=== PATIENT | male | born 1965 | race Two or more races ===

== ENCOUNTER → 2016-11-28 | Outpatient (CLI) | payer OTHER | LOC: OD 11:19 | PROVIDERS: ATTEND Preventive Medicine Undersea and Hyperbaric Medicine | DX: L97.522 Non-pressure chronic ulcer of other part of left foot with fat layer exposed (principal) ==

== ENCOUNTER 2019-12-15 14:10 | Emergency (ER) | payer OTHER ==
[2019-12-15] MEDS ORDERED: KETOROLAC TROMETHAMINE 60 MG/2 ML SDV IM ONE (14:54)
--- NOTE | 2019-12-15 14:55 | ER Document Report ---
ED Medical Screen (RME) - General Chief Complaint: Knee Pain Stated Complaint: KNEE SWELLING Time Seen by Provider: 12/15/19 14:53 Primary Care Provider: CIELO JIMENEZ DPM [Primary Care Provider] - Follow up as needed Notes: 53-year-old male presents with right knee pain/swelling. Patient states that is been ongoing for months however is gotten worse the last 3 weeks. Patient denies any specific injury. Patient states most of the pain is medial. Patient states he saw an Ortho doctor in [place] in August who told him that it "was not too bad." Patient states he has tried to see another doctor but has been limited due to being [facility]. Tenderness noted to medial aspect. Flexion limited due to pain. No erythema. Areas not hot to touch. I have greeted and performed a rapid initial assessment of this patient. A comprehensive ED assessment and evaluation of the patient, analysis of test results and completion of the medical decision making process with be conducted by additional ED providers. TRAVEL OUTSIDE OF THE [place] IN LAST 30 DAYS: No - Related Data Allergies/Adverse Reactions: No Known Allergies Allergy (Verified 09/21/16 08:05) Past Medical History - Past Medical History Cardiac Medical History: Reports: Hx Hypercholesterolemia, Hx Hypertension Endocrine Medical History: Reports: Hx Diabetes Mellitus Type 2 Past Surgical History: Reports: Hx Orthopedic Surgery - left great toe, low back surgery, Other - Cataract surgery - Immunizations Hx Diphtheria, Pertussis, Tetanus Vaccination: No Physical Exam - Vital signs Vitals: Temp Pulse Resp BP Pulse Ox 98.4 F 108 H 16 185/110 H 98 12/15/19 14:45 12/15/19 14:45 12/15/19 14:45 12/15/19 14:45 12/15/19 14:45 Course - Vital Signs Vital signs: Temp Pulse Resp BP Pulse Ox 98.4 F 108 H 16 185/110 H 98 12/15/19 14:45 12/15/19 14:45 12/15/19 14:45 12/15/19 14:45 12/15/19 14:45 Doctor's Discharge - Discharge Referrals: CIELO JIMENEZ DPM [Primary Care Provider] - Follow up as needed
--- NOTE | 2019-12-15 16:23 | RADIOLOGY REPORT (SQ) ---
EXAM DESCRIPTION: KNEE RIGHT 4 VIEWS COMPLETED DATE/TIME: 12/15/2019 3:55 pm REASON FOR STUDY: right knee pain x months, worse 3 weeks COMPARISON: None. NUMBER OF VIEWS: Four views. TECHNIQUE: AP, lateral, and both oblique radiographic images acquired of the right knee. LIMITATIONS: None. FINDINGS: MINERALIZATION: Normal. BONES: No acute fracture or dislocation. JOINT: [id number] tricompartmental osteoarthrosis. There is no joint effusion. SOFT TISSUES: Mild prepatellar soft tissue swelling. The quadriceps and patellar tendon silhouettes are intact. OTHER: Enthesophytes at the patellar insertion of the quadriceps tendon and vascular calcifications. IMPRESSION: No acute osseous abnormality of the right knee. TECHNICAL DOCUMENTATION: JOB ID: [id number] 2010 [employer]- All Rights Reserved Reading location - IP/workstation name: [email or web address]
--- NOTE | 2019-12-15 17:08 | ER Document Report ---
ED General - General Chief Complaint: Knee Pain Stated Complaint: KNEE SWELLING Time Seen by Provider: 12/15/19 14:53 Primary Care Provider: [facility] [Provider Group] - Follow up in 1 week FERN MEJIA DO [ACTIVE STAFF] - Follow up in 3-5 days Notes: 53-year-old male presents with right knee pain that is been ongoing for months, worse the last 3 weeks. Patient states he has seen Ortho in August in [place] who was told him that "it was not that bad." Patient denies any injuries, fever, chest pain, shortness of breath. TRAVEL OUTSIDE OF THE [place] IN LAST 30 DAYS: No - Related Data Allergies/Adverse Reactions: No Known Allergies Allergy (Verified 09/21/16 08:05) Past Medical History - Social History Smoking Status: Unknown if Ever Smoked Family History: CAD - Past Medical History Cardiac Medical History: Reports: Hx Hypercholesterolemia, Hx Hypertension Endocrine Medical History: Reports: Hx Diabetes Mellitus Type 2 Past Surgical History: Reports: Hx Orthopedic Surgery - left great toe, low back surgery, Other - Cataract surgery - Immunizations Hx Diphtheria, Pertussis, Tetanus Vaccination: No Review of Systems - Review of Systems Notes: Constitutional: Negative for fever. HENT: Negative for sore throat. Eyes: Negative for visual changes. Cardiovascular: Negative for chest pain. Respiratory: Negative for shortness of breath. Gastrointestinal: Negative for abdominal pain, vomiting or diarrhea. Genitourinary: Negative for dysuria. Musculoskeletal: Positive for right knee pain. Negative for back pain. Skin: Negative for rash. Neurological: Negative for headaches, weakness or numbness. 10 point ROS negative except as marked above and in HPI. Physical Exam - Vital signs Vitals: Temp Pulse Resp BP Pulse Ox 98.4 F 108 H 16 185/110 H 98 12/15/19 14:45 12/15/19 14:45 12/15/19 14:45 12/15/19 14:45 12/15/19 14:45 - Notes Notes: GENERAL: Well-appearing, well-nourished and in no acute distress. HEAD: Atraumatic, normocephalic. EYES:Extraocular movements intact, sclera anicteric, conjunctiva are normal. NECK: Normal range of motion, supple without lymphadenopathy or JVD. EXTREMITIES: Able to ambulate with cane. Tenderness to right knee on medial aspect, no erythema, mild swelling, not hotter to touch than surrounding skin, limited flexion due to pain, full extension NEUROLOGICAL: Cranial nerves II through XII grossly intact. Normal speech, normal gait. PSYCH: Normal mood, normal affect. SKIN: Warm, Dry, normal turgor, no rashes or lesions noted. Course - Re-evaluation Re-evalutation: 12/15/19 nontoxic, well-appearing 53-year-old male presents with right knee pain that is ongoing for months, worse last 3 weeks. Flexion limited due to pain. Mildly swollen. Tenderness to medial aspect. No signs of cellulitis. PE is otherwise unremarkable. X-ray shows degenerative changes. Patient given prescription for naproxen and referral to Ortho. Return precautions given. Patient voices understanding and agrees with plan of care. - Vital Signs Vital signs: Temp Pulse Resp BP Pulse Ox 97.9 F 107 H 16 148/105 H 98 12/15/19 17:33 12/15/19 17:33 12/15/19 17:33 12/15/19 17:33 12/15/19 17:33 Procedures - Immobilization Right Knee Pre-Proc Neuro Vasc Exam: Normal Immobilizer type: Pj wrap Performed by: PCT Post-Proc Neuro Vasc Exam: Normal, Unchanged from pre-exam Alignment checked and good: Yes Discharge - Discharge Clinical Impression: Osteoarthritis of right knee Qualifiers: Osteoarthritis type: unspecified Qualified Code(s): M17.11 - Unilateral primary osteoarthritis, right knee Right knee pain Qualifiers: Chronicity: unspecified Qualified Code(s): M25.561 - Pain in right knee Condition: Stable Disposition: HOME, SELF-CARE Instructions: Arthritis ([facility]), Ice & Elevation ([facility]) Additional Instructions: Please use naproxen as prescribed. Please follow-up with Ortho doctor listed in 3 to 5 days. Your x-ray shows arthritis to your knee. Please follow-up with your primary care doctor in 1 week. Return immediately to ER if you start having any worsening symptoms, including redness to area, increased swelling, area feeling hotter to touch than surrounding skin, fever, or any other symptoms that are concerning to you. Prescriptions: Naproxen 500 mg PO BID PRN #14 tablet PRN Reason: Referrals: FERN MEJIA DO [ACTIVE STAFF] - Follow up in 3-5 days [facility] [Provider Group] - Follow up in 1 week
[2019-12-15 17:34] VITALS: BP 148/105
== END 2019-12-15 17:37 | disposition home or self-care (01) ==
LOC: ER 14:10
DX: M25.561 Pain in right knee (principal); M17.11 Unilateral primary osteoarthritis, right knee; I10 Essential (primary) hypertension; E11.9 Type 2 diabetes mellitus without complications
CPT/HCPCS: 73564; J1885; 96372; 99283

== ENCOUNTER 2020-04-29 09:20 | Emergency (ER) | payer OTHER ==
--- NOTE | 2020-04-29 10:33 | ER Document Report ---
ED Medical Screen (RME) - General Chief Complaint: High Blood Pressure Stated Complaint: HIGH BLOOD PRESSURE Time Seen by Provider: 04/29/20 10:29 Primary Care Provider: CIELO JIMENEZ DPM [Primary Care Provider] - Follow up as needed Information source: Patient Notes: This 54-year-old male with a history of diabetes high cholesterol and hypertension who has not taken any of his medicines in several weeks. He is quite hypertensive at 230/130 he has knee pain that is been popping out and has not checked his sugar recently either. TRAVEL OUTSIDE OF THE [place] IN LAST 30 DAYS: No - Related Data Allergies/Adverse Reactions: No Known Allergies Allergy (Verified 04/29/20 10:29) Past Medical History - Past Medical History Cardiac Medical History: Reports: Hx Hypercholesterolemia, Hx Hypertension Endocrine Medical History: Reports: Hx Diabetes Mellitus Type 2 Past Surgical History: Reports: Hx Orthopedic Surgery - left great toe, low back surgery, Other - Cataract surgery - Immunizations Hx Diphtheria, Pertussis, Tetanus Vaccination: No Physical Exam - Vital signs Vitals: Temp Pulse Resp BP Pulse Ox 99 F 110 H 18 220/130 H 96 04/29/20 09:24 04/29/20 09:24 04/29/20 09:24 04/29/20 09:24 04/29/20 09:24 Course - Vital Signs Vital signs: Temp Pulse Resp BP Pulse Ox 99 F 110 H 18 220/130 H 96 04/29/20 09:24 04/29/20 09:24 04/29/20 09:24 04/29/20 09:24 04/29/20 09:24 Doctor's Discharge - Discharge Referrals: CIELO JIMENEZ DPM [Primary Care Provider] - Follow up as needed
[2020-04-29] MEDS ORDERED: CLONIDINE HCL 0.2 MG TABLET PO ONE (10:34)
[2020-04-29 11:04] LABS: ABSOLUTE BASOPHILS # (AUTO) 0.1 10^3/uL (0.0-0.2); ABSOLUTE EOSINOPHILS # (AUTO) 0.3 10^3/uL (0.0-0.6); ABSOLUTE LYMPHOCYTES (AUTO) 0.8 10^3/uL (0.5-4.7); ABSOLUTE MONOCYTES (AUTO) 0.8 10^3/uL (0.1-1.4); ABSOLUTE NEUT (AUTO) 5.6 10^3/uL (1.7-8.2); BASOPHILS % (AUTO) 0.9 % (0-2); EOSINOPHILS % (AUTO) 4.5 % (0-6); HEMATOCRIT 41.7 % (37.9-51.0); HEMOGLOBIN 13.7 g/dL (13.5-17.0); LYMPHOCYTES % (AUTO) 10.1 % (13-45); MEAN CORPUSCULAR HEMOGLOBIN 27.9 pg (27.0-33.4); MEAN CORPUSCULAR VOLUME 85 fl (80-97); PLATELET COUNT 361 10^3/uL (150-450); RED BLOOD COUNT 4.93 10^6/uL (4.35-5.55); RED CELL DISTRIBUTION WIDTH 13.3 % (11.5-14.0); SEGMENTED NEUTROPHILS % (AUTO) 74.5 % (42-78); TOTAL CELLS COUNTED % (AUTO) 100 %; WHITE BLOOD COUNT 7.5 10^3/uL (4.0-10.5)
[2020-04-29 11:23] LABS: ALBUMIN 2.9 g/dL (3.5-5.0); ALKALINE PHOSPHATASE 79 U/L (38-126); ASPARTATE AMINO TRANSFERASE 28 U/L (17-59); BILIRUBIN,TOTAL 0.4 mg/dL (0.2-1.3); BLOOD UREA NITROGEN 23 mg/dL (7-20); CALCIUM 8.5 mg/dL (8.4-10.2); CARBON DIOXIDE 29 mmol/L (22-30); CHLORIDE 104 mmol/L (98-107); GLUCOSE 199 mg/dL (75-110); POTASSIUM 4.4 mmol/L (3.6-5.0); TOTAL PROTEIN 6.4 g/dL (6.3-8.2)
[2020-04-29 11:32] LABS: ANION GAP 3 (5-19)
--- NOTE | 2020-04-29 11:35 | RADIOLOGY REPORT (SQ) ---
EXAM DESCRIPTION: KNEE RIGHT 2 VIEWS IMAGES COMPLETED DATE/TIME: 04/29/2020 10:23 am REASON FOR STUDY: pain COMPARISON: None. NUMBER OF VIEWS: Two views TECHNIQUE: AP and lateral radiographic images acquired of the right knee. LIMITATIONS: None. FINDINGS: MINERALIZATION: Normal. BONES: No acute fracture or dislocation. No worrisome bone lesions. Moderate size osteophytes at th e medial and lateral compartments. Small osteophytes at the patellofemoral joint. Bony spurring of the tibial spines. JOINT: No joint effusion. No intra-articular loose body. SOFT TISSUES: No soft tissue swelling. No radio-opaque foreign body. OTHER: No other significant finding. IMPRESSION: Moderate tricompartmental osteoarthritis. No acute fracture or dislocation. TECHNICAL DOCUMENTATION: JOB ID: [id number] [employer]- All Rights Reserved Reading location - IP/workstation name: [email or web address]
[2020-04-29] MEDS ORDERED: HYDRALAZINE HCL INJ/PF 20 MG/1 ML SDV IV ONE (12:38)
--- NOTE | 2020-04-29 12:47 | ER Document Report ---
Entered by ELIAS IZQUIERDO SCRIBE 04/29/20 1239 Acting as scribe for:KATIE DU MD ED General - General Chief Complaint: High Blood Pressure Stated Complaint: HIGH BLOOD PRESSURE Time Seen by Provider: 04/29/20 10:29 Primary Care Provider: SUZETTE FERNÁNDEZ PA [NO LOCAL MD] - Follow up in 3-5 days Mode of Arrival: Ambulatory Information source: Patient Notes: This 54-year-old male patient presents to the emergency department today from h is PCPs office today for hypertensive emergency. Patient had pressures of 220/120 today at his primary care physician's office. Patient was there to get refills on his blood pressure medicine today, stating that he has been out of his meds for x3-4 days. Patient also complains about his chronic right knee pain. TRAVEL OUTSIDE OF THE [place] IN LAST 30 DAYS: No - Related Data Allergies/Adverse Reactions: No Known Allergies Allergy (Verified 04/29/20 10:29) Past Medical History - General Information source: Patient - Social History Smoking Status: Current Every Day Smoker Cigarette use (# per day): Yes Frequency of alcohol use: Social Drug Abuse: None Occupation: Works as a electro mechanical assembler Family History: CAD Patient has homicidal ideation: No - Past Medical History Cardiac Medical History: Reports: Hx Hypercholesterolemia, Hx Hypertension Endocrine Medical History: Reports: Hx Diabetes Mellitus Type 2 Past Surgical History: Reports: Hx Orthopedic Surgery - left 3rd toe, low back surgery, Other - Cataract surgery - Immunizations Hx Diphtheria, Pertussis, Tetanus Vaccination: No Review of Systems - Review of Systems Constitutional: No symptoms reported EENT: No symptoms reported Cardiovascular: See HPI, Other - Hypertension Respiratory: No symptoms reported Gastrointestinal: No symptoms reported Genitourinary: No symptoms reported Male Genitourinary: No symptoms reported Musculoskeletal: See HPI, Joint pain - Right knee, chronic Skin: No symptoms reported Hematologic/Lymphatic: No symptoms reported Neurological/Psychological: No symptoms reported -: Yes All other systems reviewed and negative Physical Exam - Vital signs Vitals: Temp Pulse Resp BP Pulse Ox 99 F 110 H 18 220/130 H 96 04/29/20 09:24 04/29/20 09:24 04/29/20 09:24 04/29/20 09:24 04/29/20 09:24 - Notes Notes: Physical Exam: General: Alert. HEENT: Normocephalic. Atraumatic. PERRL. Extraocular movements intact. Oropharynx clear. Neck: Supple. Non-tender. Respiratory: No respiratory distress. Clear and equal breath sounds bilaterally. Cardiovascular: Regular rate and rhythm. Abdominal: Normal Inspection. Non-tender. No distension. Normal Bowel Sounds. Back: No gross abnormalities. Extremities: Moves all four extremities. Upper extremities: Normal inspection. Normal ROM. Lower extremities: 1-2+ firm pitting edema bilaterally. Chronic thickened skin on lower extremities. Right knee is large, swollen, and tender to palpation consistent with osteoarthritic changes. Neurological: Normal cognition. AAOx4. Normal speech. Psychological: Normal affect. Normal Mood. Skin: Warm. Dry. Normal color. Course - Re-evaluation Re-evalutation: 04/29/20 14:05 Patient blood pressure is now down to 158/101 with a pulse of 88. He will be given an additional dose of Lopressor 5 mg IV, and an oral dose of 50 mg. The patient's total CK was 952. This may be due to his statin therapy, but will require follow-up by his primary care provider. In the meantime he will be encouraged to drink plenty of water but to avoid salt or sodium. His primary care provider ROBIN Dubois did call me back and states that according to his records the patient should not have run of his medication, however he will contact the pharmacy to ensure that he has refills of all his medications waiting for him when he is discharged today so that he does not run out of his medications. 04/29/20 14:27 At discharge, the patient states that he needs a note for work. His right knee is swollen and painful all the time but he is had no problems continuing to work as a electro mechanical assembler he does not have to go up and down steps or ladders. He stated his boss just wanted a note saying that it was okay for him to continue working. - Vital Signs Vital signs: Temp Pulse Resp BP Pulse Ox 99 F 110 H 22 H 158/101 H 92 04/29/20 10:29 04/29/20 09:24 04/29/20 13:01 04/29/20 14:01 04/29/20 14:01 - Laboratory Result Diagrams: 04/29/20 10:44 04/29/20 10:44 Laboratory results interpreted by me: 04/29/20 04/29/20 04/29/20 10:44 10:44 10:44 Lymph % (Auto) 10.1 L Sodium 136.4 L Anion Gap 3 L BUN 23 H Creatinine 1.29 H Est GFR (MDRD) Non-Af 58 L Glucose 199 H Hemoglobin A1c % Creatine Kinase 952 H Albumin 2.9 L Urine Protein Urine Glucose (UA) Urine Ketones Urine Blood 04/29/20 04/29/20 10:44 13:38 Lymph % (Auto) Sodium Anion Gap BUN Creatinine Est GFR (MDRD) Non-Af Glucose Hemoglobin A1c % 10.6 H Creatine Kinase Albumin Urine Protein >=500 H Urine Glucose (UA) >=500 H Urine Ketones TRACE H Urine Blood SMALL H - Diagnostic Test Radiology reviewed: Image reviewed, Reports reviewed - Right knee x-ray shows tricompartmental osteoarthritis - EKG Interpretation by Me EKG shows normal: Sinus rhythm, Spring, QRS Complexes. abnormal: Intervals - Borderline prolonged QT interval, ST-T Waves - Nonspecific lateral T abnormalities, ST elevation consistent with normal early repolarization pattern Rate: Normal - 89 Spring/QRS: Right axis deviation Heart block present: 1st Degree When compared to previous EKG there are: No significant change Discharge - Discharge Clinical Impression: Has run out of medications, Poor compliance with medication, Poorly controlled diabetes mellitus Hypertension Qualifiers: Hypertension type: essential hypertension Qualified Code(s): I10 - Essential (primary) hypertension Diabetes Qualifiers: Diabetes mellitus type: type 2 Diabetes mellitus terminologist insulin use: with terminologist use Diabetes mellitus complication status: with hyperglycemia Qualified Code(s): E11.65 - Type 2 diabetes mellitus with hyperglycemia Osteoarthritis of right knee Qualifiers: Osteoarthritis type: unspecified Qualified Code(s): M17.11 - Unilateral primary osteoarthritis, right knee Rhabdomyolysis Qualifiers: Rhabdomyolysis type: non-traumatic Qualified Code(s): M62.82 - Rhabdomyolysis Condition: Stable Disposition: HOME, SELF-CARE Additional Instructions: Knee Arthritis: Your symptoms are due to arthritis. Arthritis is an inflammation of the joints. There are many types -- osteoarthritis (due to "wear and tear"), auto- immmune arthritis (such as rheumatoid, lupus, Jaxon's, and others), and crystal-induced arthritis (such as gout and pseudogout). The physician's examination, combined with laboratory tests, will determine the cause of your arthritis. Your arthritis is osteoarthritis. All types of arthritis are treated with antiinflammatory medications. Other medication may be required for special types of arthritis, or if your problem does not respond to the antiinflammatory medicine. Local warmth may be helpful. Move the involved joints through the full range of motion daily. Mild exercise is usually still possible for most persons with arthritis (ask your physician). Swimming provides good exercise without d amaging the joints. Contact the physician if you are worsening in any way. High Blood Pressure: When your blood pressure was taken today it was elevated. Today's reading was 220/130. It is very important that you do not allow yourself to run out of medication. You are at very high risk for heart attack and stroke due to your poorly controlled high blood pressure and poorly controlled diabetes. Rhabdomyolysis: This means of breakdown of muscles causing release of a muscle enzyme called creatinine kinase. This may be due to the atorvastatin you are taking. You should drink plenty of water over the next few days to help wash this enzyme out of your system. Be sure to avoid sodium in your diet and your fluid you are drinking so that you do not retain the water you are drinking. Go to your pharmacy and get your medications refilled so that you do not run out of your diabetes and blood pressure medicines. Limit walking on your right knee, and take extra strength Tylenol for pain as needed. Follow-up with your primary care provider in the next few days for recheck of your knee and to be sure your blood pressure and blood sugars are being controlled. Take copies of the lab work and your EKG when you follow-up with your doctor in the next few days. RETURN TO THE EMERGENCY ROOM IF ANY NEW OR WORSENING SYMPTOMS. Forms: Return to Work Referrals: CAMP,SUZETTE M, PA [NO LOCAL MD] - Follow up in 3-5 days I personally performed the services described in the documentation, reviewed and edited the documentation which was dictated to the scribe in my presence, and it accurately records my words and actions.
[2020-04-29] MEDS ORDERED: METOPROLOL TARTRATE PF/INJ 5 MG/5 ML SDV IV ONE ×2 (13:23→14:05)
[2020-04-29 13:57] LABS: APPEARANCE,URINE CLEAR; BILIRUBIN,URINE NEGATIVE (NEGATIVE); COLOR,URINE STRAW; GLUCOSE, URINE >=500 mg/dL (NEGATIVE); KETONES,URINE TRACE mg/dL (NEGATIVE); LEUKOCYTE ESTERASE,URINE NEGATIVE (NEGATIVE); NITRITE,URINE NEGATIVE (NEGATIVE); PROTEIN,URINE >=500 mg/dL (NEGATIVE); URINE SPECIFIC GRAVITY 1.015; UROBILINOGEN,URINE NEGATIVE mg/dL (<2.0)
[2020-04-29] MEDS ORDERED: METOPROLOL TARTRATE 50 MG TABLET PO ONE (14:05)
[2020-04-29 14:43] VITALS: BP 165/104
--- NOTE | 2020-04-30 19:29 | EKG REPORT ---
SEVERITY:- ABNORMAL ECG - SINUS RHYTHM FIRST DEGREE AV BLOCK RIGHT AXIS DEVIATION NONSPECIFIC T ABNORMALITIES, LATERAL LEADS ST ELEV, PROBABLE NORMAL EARLY REPOL PATTERN BORDERLINE PROLONGED QT INTERVAL : Confirmed by: Bossman Armenta 30-Apr-2020 19:28:34
== END 2020-04-29 15:03 | disposition home or self-care (01) ==
LOC: ER 09:20
DX: I16.1 Hypertensive emergency (principal); I10 Essential (primary) hypertension; E11.65 Type 2 diabetes mellitus with hyperglycemia; M62.82 Rhabdomyolysis; M17.11 Unilateral primary osteoarthritis, right knee; R60.0 Localized edema; R23.4 Changes in skin texture; I44.0 Atrioventricular block, first degree; F17.210 Nicotine dependence, cigarettes, uncomplicated; Z79.4 Long term (current) use of insulin
CPT/HCPCS: 93005; 96376; 99284; 96374; 96375; 36415; 82550; 83735; 85025; 80053; 81001; 84484; 83036; 73560; 93010; J0360; J3490

== ENCOUNTER 2020-09-10 10:59 | Inpatient (IN) | payer OTHER ==
[2020-09-10 12:12] LABS: ABSOLUTE BASOPHILS # (AUTO) 0.1 10^3/uL (0.0-0.2); ABSOLUTE EOSINOPHILS # (AUTO) 0.3 10^3/uL (0.0-0.6); ABSOLUTE LYMPHOCYTES (AUTO) 0.8 10^3/uL (0.5-4.7); ABSOLUTE MONOCYTES (AUTO) 0.5 10^3/uL (0.1-1.4); ABSOLUTE NEUT (AUTO) 5.3 10^3/uL (1.7-8.2); BASOPHILS % (AUTO) 1.1 % (0-2); EOSINOPHILS % (AUTO) 3.9 % (0-6); HEMATOCRIT 43.8 % (37.9-51.0); HEMOGLOBIN 14.8 g/dL (13.5-17.0); LYMPHOCYTES % (AUTO) 11.9 % (13-45); MEAN CORPUSCULAR HEMOGLOBIN 28.7 pg (27.0-33.4); MEAN CORPUSCULAR HGB CONC 33.8 g/dL (32.0-36.0); MEAN CORPUSCULAR VOLUME 85 fl (80-97); MONOCYTES % (AUTO) 7.6 % (3-13); PLATELET COUNT 301 10^3/uL (150-450); RED BLOOD COUNT 5.16 10^6/uL (4.35-5.55); RED CELL DISTRIBUTION WIDTH 14.3 % (11.5-14.0); SEGMENTED NEUTROPHILS % (AUTO) 75.5 % (42-78); TOTAL CELLS COUNTED % (AUTO) 100 %; WHITE BLOOD COUNT 7.1 10^3/uL (4.0-10.5)
--- NOTE | 2020-09-10 12:17 | RADIOLOGY REPORT (SQ) ---
EXAM DESCRIPTION: CHEST SINGLE VIEW IMAGES COMPLETED DATE/TIME: 09/10/2020 12:09 pm REASON FOR STUDY: shortness of breath COMPARISON: 10/17/2016 EXAM PARAMETERS: NUMBER OF VIEWS: One view. TECHNIQUE: Single frontal radiographic view of the chest acquired. RADIATION DOSE: NA LIMITATIONS: None. FINDINGS: LUNGS AND PLEURA: Patchy bibasilar infiltrates. Probable small effusions. MEDIASTINUM AND HILAR STRUCTURES: No masses. Contour normal. HEART AND VASCULAR STRUCTURES: Heart normal in size. Normal vasculature. BONES: No acute findings. HARDWARE: None in the chest. OTHER: No other significant finding. IMPRESSION: Patchy bibasilar infiltrates left greater than right. Most likely pneumonia. Less like ly asymmetric edema. TECHNICAL DOCUMENTATION: JOB ID: [id number] 2010 [email or web address]- All Rights Reserved Reading location - IP/workstation name: [email or web address]
[2020-09-10 12:39] LABS: ALKALINE PHOSPHATASE 105 U/L (38-126); ANION GAP 6 (5-19); ASPARTATE AMINO TRANSFERASE 52 U/L (17-59); BILIRUBIN,DIRECT 0.3 mg/dL (0.0-0.4); BILIRUBIN,TOTAL 0.9 mg/dL (0.2-1.3); BLOOD UREA NITROGEN 15 mg/dL (7-20); CALCIUM 8.4 mg/dL (8.4-10.2); CARBON DIOXIDE 30 mmol/L (22-30); CHLORIDE 99 mmol/L (98-107); GLUCOSE 336 mg/dL (75-110); POTASSIUM 4.9 mmol/L (3.6-5.0); TOTAL PROTEIN 6.7 g/dL (6.3-8.2)
[2020-09-10] MEDS ORDERED: FUROSEMIDE INJ/PF 20 MG/2 ML SDV IV ONE (12:46)
[2020-09-10] MEDS ORDERED: NITROGLYCERIN 2% OINTMENT 1 GM PACKET TP ONE (12:46)
[2020-09-10 13:03] LABS: INTERNATIONAL RATION (INR) 0.92; PROTHROMBIN TIME 12.5 SEC (11.4-15.4)
[2020-09-10 13:04] LABS: PARTIAL THROMBOPLASTIN TIME 30.6 SEC (23.5-35.8)
[2020-09-10] MEDS ORDERED: LISINOPRIL 10 MG TABLET PO ONE (13:13)
[2020-09-10] MEDS ORDERED: AMLODIPINE BESYLATE 10 MG TABLET PO ONE (13:14)
[2020-09-10 13:23] LABS: APPEARANCE,URINE CLEAR; BILIRUBIN,URINE NEGATIVE (NEGATIVE); COLOR,URINE YELLOW; GLUCOSE, URINE >=500 mg/dL (NEGATIVE); KETONES,URINE TRACE mg/dL (NEGATIVE); LEUKOCYTE ESTERASE,URINE NEGATIVE (NEGATIVE); NITRITE,URINE NEGATIVE (NEGATIVE); PROTEIN,URINE >=500 mg/dL (NEGATIVE); URINE SPECIFIC GRAVITY 1.023; UROBILINOGEN,URINE NEGATIVE mg/dL (<2.0)
[2020-09-10 13:36] LABS: TROPONIN I 0.042 ng/mL
[2020-09-10] MEDS: LABETALOL HCL INJ 20 MG/4 ML DISP.SYRIN IV ONE ×2 (13:37→15:06)
[2020-09-10 13:38] LABS: URINE AMPHETAMINES SCREEN NEGATIVE; URINE BARBITURATES SCREEN NEGATIVE; URINE BENZODIAZEPINES SCREEN NEGATIVE; URINE COCAINE SCREEN NEGATIVE; URINE MARIJUANA (THC) SCREEN NEGATIVE; URINE METHADONE SCREEN NEGATIVE; URINE PHENCYCLIDINE SCREEN NEGATIVE
--- NOTE | 2020-09-10 14:51 | EKG REPORT ---
SEVERITY:- ABNORMAL ECG - SINUS TACHYCARDIA BORDERLINE RIGHT AXIS DEVIATION NONSPECIFIC T ABNORMALITIES, LATERAL LEADS BORDERLINE PROLONGED QT INTERVAL : Confirmed by: Julio Howard MD 10-Sep-2020 14:50:12
[2020-09-10] MEDS ORDERED: LABETALOL HCL INJ 20 MG/4 ML DISP.SYRIN IV ONE (15:15)
--- NOTE | 2020-09-10 16:01 | ER Document Report ---
Entered by TERESITA HARTMAN SCRIBE 09/10/20 [id number] Acting as scribe for:JULY JONES MD ED General - General Chief Complaint: Swelling of Lower Extremity Stated Complaint: LEG PAIN/SWELLING,SHORT OF BREATH Time Seen by Provider: 09/10/20 12:27 Mode of Arrival: Ambulatory Information source: Patient Notes: This 54 year old male patient with a history of hypertension and type 2 diabetes mellitus presents to the ED today with complaints of bilateral leg swelling and shortness of breath for the past x1 week. He also reports swelling to his abdomen and groin area. He states that he has been having trouble sleeping at night because he can't lay flat without becoming short of breath. Denies history of CHF or DVT. Denies fever, chills, cough, or chest pain. Patient mentions that he ran out of his blood pressure medications x3 days ago and that the last time he checked his BGL last week it was 190. TRAVEL OUTSIDE OF THE [place] IN LAST 30 DAYS: No - Related Data Allergies/Adverse Reactions: No Known Allergies Allergy (Verified 04/29/20 10:29) Past Medical History - Social History Smoking Status: Smoker,Current Status Unk - Smokes cigars Smoking Education Provided: No Frequency of alcohol use: Occasional Drug Abuse: None Occupation: [employer] Lives with: Alone Family History: Reviewed & Not Pertinent, CAD Patient has suicidal ideation: No Patient has homicidal ideation: No - Past Medical History Cardiac Medical History: Reports: Hx Hypercholesterolemia, Hx Hypertension Endocrine Medical History: Reports: Hx Diabetes Mellitus Type 2 Musculoskeletal Medical History: Reports Hx Arthritis - neck and bilateral knees, right > left Past Surgical History: Reports: Hx Orthopedic Surgery - left 3rd toe, low back surgery, Other - Cataract surgery - Immunizations Hx Diphtheria, Pertussis, Tetanus Vaccination: No Review of Systems - Review of Systems Constitutional: See HPI. denies: Chills, Fever EENT: No symptoms reported Cardiovascular: See HPI, Orthopnea. denies: Chest pain Respiratory: See HPI, Short of breath. denies: Cough Gastrointestinal: See HPI Genitourinary: No symptoms reported Male Genitourinary: No symptoms reported Musculoskeletal: See HPI, Leg swelling Skin: No symptoms reported Hematologic/Lymphatic: No symptoms reported Neurological/Psychological: No symptoms reported -: Yes All other systems reviewed and negative Physical Exam - Vital signs Vitals: Temp Pulse Resp BP Pulse Ox 97.5 F 102 H 16 218/121 H 91 L 09/10/20 11:09 09/10/20 11:09 09/10/20 11:09 09/10/20 11:09 09/10/20 11:09 - General General appearance: Alert In distress: None - HEENT Head: Normocephalic, Atraumatic Eyes: Normal Pupils: PERRL - Respiratory Respiratory status: Other - 94-95% on RA Breath sounds: Decreased air movement - Diminished breath sounds in the bases, Rales - Cardiovascular Rhythm: Regular Heart sounds: Normal auscultation, S1 appreciated, S2 appreciated Murmur: No Friction rub: No Gallop: None auscultated - Abdominal Inspection: Obese Distension: No distension Bowel sounds: Normal Tenderness: Nontender - Abdomen soft Organomegaly: No organomegaly - Back Back: Normal, Nontender - Extremities General upper extremity: Normal inspection General lower extremity: Edema - 3+ brawny edema to bilateral lower extremites up to just above the knee - Neurological Neuro grossly intact: Yes Orientation: AAOx4 Captiva Coma Scale Eye Opening: Spontaneous Dwayne Coma Scale Verbal: Oriented Dwayne Coma Scale Motor: Obeys Commands Captiva Coma Scale Total: 15 - Psychological Associated symptoms: Normal affect, Normal mood - Skin Skin Temperature: Warm Skin Moisture: Dry Skin Color: Normal Course - Re-evaluation Re-evalutation: 09/10/20 16:13 Patient resting comfortable in exam room. Blood pressure has improved to 160/109 most recent check. 09/10/20 16:[address] Sharma of the hospitalist service and because of patient's presentation of accelerated hypertension exacerbating CHF and a troponin leak and an acute kidney injury the opinion was that patient should be admitted to the ICU perhaps on an IV drip to control blood pressure in the ICU setting. I then discussed case with Dr. Hough, ethics manager of the day. Dr. Hough stated he would evaluate patient at bedside in the emergency department. Further discussion once he has completed his evaluation. 09/11/20 06:47 discussed case with the hospitalist staff and the agreement was to admit patient to the ICU. - Vital Signs Vital signs: Temp Pulse Resp BP Pulse Ox 98.1 F 98 15 171/111 H 97 09/11/20 05:38 09/11/20 05:38 09/11/20 05:38 09/11/20 05:38 09/11/20 05:38 09/10/20 16:13 Vital signs have improved. Blood pressure is 160/109 at this time. - Laboratory Result Diagrams: 09/10/20 11:45 09/10/20 11:45 Laboratory results interpreted by me: 09/10/20 09/10/20 09/10/20 11:45 11:45 11:45 RDW 14.3 H Lymph % (Auto) 11.9 L Sodium 135.4 L Creatinine 1.44 H Est GFR (MDRD) Non-Af 51 L Glucose 336 H NT-Pro-B Natriuret Pep 3990 H Albumin 3.0 L Urine Protein Urine Glucose (UA) Urine Ketones Urine Blood 09/10/20 12:52 RDW Lymph % (Auto) Sodium Creatinine Est GFR (MDRD) Non-Af Glucose NT-Pro-B Natriuret Pep Albumin Urine Protein >=500 H Urine Glucose (UA) >=500 H Urine Ketones TRACE H Urine Blood SMALL H 09/10/20 16:14 Laboratory shows a BNP of 3990 a creatinine of 1.4 and a mild increase in troponin at 0.042 - Diagnostic Test Radiology reviewed: Image reviewed, Reports reviewed Radiology results interpreted by me: 09/10/20 16:15 Chest X-Ray 09/10/20 11:42 IMPRESSION: Patchy bibasilar infiltrates left greater than right. Most likely pneumonia. Less likely asymmetric edema. Chest x-ray shows patchy bibasilar infiltrates left greater than right differential includes edema versus pneumonia. - EKG Interpretation by Me Additional EKG results interpreted by me: 09/10/20 16:15 Twelve-lead EKG shows sinus tachycardia rate of 105 borderline right axis deviation nonspecific ST-T wave changes laterally borderline prolonged QT interval normal CA and QRS interval no STEMI Critical Care Note - Critical Care Note Total time excluding time spent on procedures (mins): 50 - Management of patient with accelerated hypertension with new onset congestive heart failure, acute kidney injury, and a mild elevation in elevated troponin. Discussions with ethics manager, and hospitalist staff. Discharge - Discharge Clinical Impression: Accelerated hypertension, Congestive heart failure, Elevated troponin, Acute kidney injury Condition: Critical Disposition: ADMITTED INPATIENT Admitting Provider: Gianluca (Teaching Fellow) Unit Admitted: ICU I personally performed the services described in the documentation, reviewed and edited the documentation which was dictated to the scribe in my presence, and it accurately records my words and actions.
--- NOTE | 2020-09-10 17:24 | Progress Note ---
Provider Note Provider Note: Mr. Bird Romano is a 54 y/o [facility] with PMH of HTN, HLD, insulin dependent DM2, obesity (BMI 32) who presented to the ED with SOB, URIOSTEGUI, dizziness and pre-syncope. He reports that he ran out of his home medications 2-3 days ago but his symptoms of SOB, URIOSTEGUI, dizziness and pre-syncope began this morning. Of note, he also reports 2+ weeks of increasing BLE and scrotal edema. He denies having had any chest pain/pressure yesterday or today. Upon presentation to the ED, VS were notable for T 97.5, BP 218/121, HR 102, RR 16, O2 saturation 91% on RA. CXR showed bilateral patchy infiltrates and effusions. Labs were notable for troponin 0.04, Cr 1.44, pro-BNP ~4K. EKG showed sinus tachycardia and lateral T-wave flattening. Over the course of his stay in the ED, he was treated with amlodipine PO, lisinopril PO, labetalol IV, nitro ointment, and Lasix IV. His BP is now 205/132. On examination, Mr. Romano is alert, pleasant, talkative, stating that he is no longer feeling SOB or dizzy. He has +JVD, +crackles throughout both lungs, +tachycardia, +HJR, +scrotal edema, and 3+ bilateral lower extremity pitting edema. He is neurologically intact although he does use a cane at baseline to ambulate due to R knee arthritis. Mr. Romano has hypertensive emergency with evidence of end-organ damage (dyspn ea, dizziness, BEATRICE, NSTEMI). I believe he would be best served in the ICU, where he can be managed with a drip and monitored closely for at least 12-24 hours. Recommendations discussed at length with patient, Dr. Granados (ED) and Dr. Hough (ICU).
[2020-09-10] MEDS ORDERED: OXYCODONE-ACETAMINOPHEN 5-325 MG TABLET PO PRN (17:37)
[2020-09-10] MEDS ORDERED: DEXTROSE 50%-WATER 25 GM/50 ML DISP.SYRIN IV PRN ×2 (17:58)
[2020-09-10] MEDS ORDERED: GLUCAGON,HUMAN RECOMB 1 MG INJ IM PRN (17:58)
[2020-09-10] MEDS ORDERED: DEXTROSE 40% GEL 15 GM TUBE PO PRN ×2 (17:58)
--- NOTE | 2020-09-10 18:51 | CRITICAL CARE ADMISSION REPORT ---
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 emergency department with complaints of dyspnea, exertional dyspnea and orthopnea, along with progressively worsening lower extremity edema and ascites over the past several weeks. The patient reports that he is normally on treatment for hypertension. He had a telemedicine appointment approximately 1 month ago that he did not keep, due to technical difficulties. He became frustrated and chose not to pursue obtaining refills for his antihypertensive medications. His antihypertensive regimen includes: Lopressor 25 mg p.o. twice daily, lisinopril 20 mg p.o. daily, Norvasc 5 mg p.o. daily. In addition, he has type 2 diabetes. His diabetes regimen consists of Lantus 25 units subcutaneously nightly and insulin lispro sliding scale. In the emergency department, the patient was given a p.o. dose of lisinopril and amlodipine. He was also given a dose of furosemide IV and labetalol. He reports improvement in his shortness of breath. He is on room air at the time of clinical interview. He denies chest pain, palpitations, syncope or near syncope. At this point, the patient has already received lisinopril 40 mg p.o., amlodipine 10 mg p.o. along with 2 doses of labetalol 10 mg IV and furosemide 40 mg IV. History obtained from:: Patient - Diagnosis/Plan (1) Hypertensive emergency Is this a current diagnosis for this admission?: Yes Plan: * Lisinopril 20 mg p.o. daily (start tomorrow, as the patient has already received a 40 mg p.o. dose in the ER today). * Start metoprolol 25 mg p.o. twice daily today. * In light of the patient's complaint of progressively worsening lower extremity edema, I will withhold his Norvasc for now. * The patient has already saved furosemide 40 mg IV x1 in the ER. Daily diuretic (hydrochlorothiazide, chlorthalidone or furosemide) disease should be considered. * Renal ultrasound. * 24-hour urine collection for catecholamines and to assess proteinuria. * 2D echo. * This patient has high risk factors and suspicious review of symptoms to raise concern for sleep apnea syndrome. I have advised patient that he should seek out diagnostic polysomnography after discharge from the hospital. (2) Elevated troponin Is this a current diagnosis for this admission?: Yes Plan: * Trend troponin. (3) Elevated brain natriuretic peptide (BNP) level Is this a current diagnosis for this admission?: Yes Plan: * 2D echocardiographic interrogation. * Repeat BNP in a.m. (4) Acute pulmonary edema Is this a current diagnosis for this admission?: Yes Plan: Chest x-ray in a.m. (5) Type 2 diabetes mellitus Qualifiers: Diabetes mellitus roasterman insulin use: with roasterman use Diabetes mellitus complication status: with kidney complications Diabetes mellitus complication detail: with nephropathy Qualified Code(s): E11.21 - Type 2 diabetes mellitus with diabetic nephropathy; Z79.4 - remote computer terminal operator (current) use of insulin Is this a current diagnosis for this admission?: Yes Plan: Sliding scale insulin for now. (6) Acute kidney injury Is this a current diagnosis for this admission?: Yes Plan: * At this point, it is unclear whether this is truly acute or chronic. The patient has a longstanding history of taking naproxen for aches and pains. Additionally, he has been on antihypertensive therapy with lisinopril for about 10 years. Also, he has type 2 diabetes mellitus. * Hold naproxen. * Renal dosing of medications. * Avoid nephrotoxic drugs (with the exception of STEFAN inhibitor/ARBs). * 24-hour urine for protein. Past Medical History Cardiac Medical History: Reports: Hyperlipidema, Hypertension Endocrine Medical History: Reports: Diabetes Mellitus Type 2 Musculoskeltal Medical History: Reports: Arthritis - neck and bilateral knees, right > left Past Surgical History Past Surgical History: Reports: Orthopedic Surgery - left 3rd toe, low back surgery, Other - Cataract surgery Social/Family History - Social History Lives with: Alone Smoking Status: Smoker,Current Status Unk - Smokes cigars Frequency of Alcohol Use: Rare Hx Recreational Drug Use: No Drugs: None Hx Prescription Drug Abuse: No - Medication/Allergies Home Medications: Amlodipine Besylate [Norvasc 5 mg Tablet] 5 mg PO DAILY 09/10/20 Aspirin [Lo-Dose Aspirin EC] 81 mg PO DAILY 09/10/20 Atorvastatin Calcium [Lipitor 40 mg Tablet] 40 mg PO QHS 09/10/20 Empagliflozin [Jardiance] 10 mg PO QAM 09/10/20 Esomeprazole Magnesium [Nexium 24Hr] 20 mg PO DAILYP PRN 09/10/20 Ibuprofen [Advil] 200 mg PO DAILYP PRN 09/10/20 Insulin Detemir [Levemir Insulin 100 units/mL Insulin Pen] 15 unit SUBCUT QHS 09/10/20 Sitagliptin Phos/Metformin HCl [Janumet Xr 100-1,000 mg Tablet] 1 each PO QPM 09/10/20 Telmisartan 80 mg PO DAILY 09/10/20 Allergies/Adverse Reactions: No Known Allergies Allergy (Verified 04/29/20 10:29) Review of Systems Constitutional: PRESENT: weight gain. ABSENT: anorexia, chills, fatigue, fever(s), headache(s), night sweats Eyes: ABSENT: visual disturbances Ears: PRESENT: other - Tinnitus (chronic) Nose, Mouth, and Throat: ABSENT: headache(s), mouth pain, sore throat, vertigo Cardiovascular: PRESENT: dyspnea on exertion, edema, orthropnea. ABSENT: chest pain, palpitations Respiratory: PRESENT: dyspnea. ABSENT: cough, hemoptysis, sputum Gastrointestinal: PRESENT: constipation. ABSENT: abdominal pain, bloating, coffee ground emesis, diarrhea, dysphagia, heartburn, hematemesis, hematochezia, melena, nausea, vomiting Genitourinary: PRESENT: nocturia. ABSENT: difficulty urinating, dysuria, hematuria Musculoskeletal: PRESENT: other - Arthritis Integumentary: PRESENT: rash - Bilateral lower extremity ichthyosis. ABSENT: diaphoresis, erythema, lesions, pruritus Neurological: PRESENT: abnormal gait, numbness, paresthesias, tingling. ABSENT: abnormal movements, abnormal speech, confusion, convulsions, dizziness, focal weakness, frequent falls, lack of coordination, memory loss, restless legs, syncope, tremor(s), vertigo, weakness Psychiatric: ABSENT: anxiety, depression, hallucinations, homidical ideation, suicidal ideation Endocrine: ABSENT: cold intolerance, heat intolerance, menstrual abnormalities, polydipsia, polyphagia, polyuria Hematologic/Lymphatic: ABSENT: lymphadenopathy Physical Exam Vital Signs: Temp Pulse Resp BP Pulse Ox 97.5 F 102 H 16 205/132 H 93 09/10/20 11:09 09/10/20 11:09 09/10/20 14:31 09/10/20 14:31 09/10/20 14:31 Intake & Output 09/09/20 09/10/20 09/11/20 06:59 06:59 06:59 Weight 108.862 kg Weight/Height Weight 108.862 kg Height 1.83 m General appearance: PRESENT: no acute distress, well-developed, well-nourished Head exam: PRESENT: atraumatic, normocephalic Eye exam: PRESENT: conjunctiva pink, EOMI, PERRLA. ABSENT: scleral icterus Mouth exam: PRESENT: moist, tongue midline Neck exam: ABSENT: carotid bruit, JVD, lymphadenopathy, thyromegaly Respiratory exam: PRESENT: crackles, symmetrical, unlabored. ABSENT: prolonged expiratory phas, rales, rhonchi, wheezes Cardiovascular exam: PRESENT: RRR. ABSENT: diastolic murmur, rubs, systolic murmur Pulses: PRESENT: normal dorsalis pedis pul GI/Abdominal exam: PRESENT: ascites, normal bowel sounds, soft. ABSENT: distended, guarding, mass, organolmegaly, rebound, tenderness Extremities exam: PRESENT: full ROM, pedal edema, +2 edema, other - Bilateral ichthyosis-like changes. ABSENT: calf tenderness, clubbing Musculoskeletal exam: PRESENT: normal inspection. ABSENT: deformity Neurological exam: PRESENT: alert, awake, oriented to person, oriented to place, oriented to time, oriented to situation, CN II-XII grossly intact. ABSENT: motor sensory deficit Psychiatric exam: PRESENT: appropriate affect. ABSENT: agitated, anxious, depressed Skin exam: PRESENT: other - Bilateral ichthyosis-like changes Laboratory/Radiographs Laboratory Results: 09/10/20 11:45 09/10/20 11:45 09/10/20 09/10/20 09/10/20 11:45 11:45 12:52 WBC 7.1 RBC 5.16 Hgb 14.8 Hct 43.8 MCV 85 MCH 28.7 MCHC 33.8 RDW 14.3 H Plt Count 301 Seg Neutrophils % 75.5 Sodium 135.4 L Potassium 4.9 Chloride 99 Carbon Dioxide 30 Anion Gap 6 BUN 15 Creatinine 1.44 H Est GFR ( Amer) > 60 Glucose 336 H Calcium 8.4 Total Bilirubin 0.9 AST 52 Alkaline Phosphatase 105 Total Protein 6.7 Albumin 3.0 L Urine Color YELLOW Urine Appearance CLEAR Urine pH 7.0 Ur Specific [place] 1.023 Urine Protein >=500 H Urine Glucose (UA) >=500 H Urine Ketones TRACE H Urine Blood SMALL H Urine Nitrite NEGATIVE Ur Leukocyte Esterase NEGATIVE Urine WBC (Auto) 1 Urine RBC (Auto) 21 09/10/20 11:45 Troponin I 0.042 NT-Pro-B Natriuret Pep 3990 H Impressions: Chest X-Ray 09/10/20 11:42 IMPRESSION: Patchy bibasilar infiltrates left greater than right. Most likely pneumonia. Less likely asymmetric edema. All labs, radiographs, diagnostic studies and EKGs were personally reviewed: Yes In addition, reports of radiographic and diagnostic studies were read: Yes Critical Time Critical Time (minutes): 60 -: The care of a critically ill patient is dynamic. This note represents a static moment in the admission process. Orders and treatments may be given simultane ously and urgently, and time is not direct sales representative of the treatment process. This patient requires Critical Care secondary to life threatening organ or limb dysfunction. Without Critical Care services, the patient is at risk for increased mortality and morbidity.
[2020-09-10] MEDS ORDERED: LABETALOL HCL INJ 20 MG/4 ML DISP.SYRIN IV PRN (18:54)
--- NOTE | 2020-09-10 19:08 | RADIOLOGY REPORT (SQ) ---
EXAM DESCRIPTION: U/S RETROPERITON (RENAL/AORTA) IMAGES COMPLETED DATE/TIME: 09/10/2020 6:47 pm REASON FOR STUDY: hypertensive emergency COMPARISON: None. TECHNIQUE: Dynamic and static grayscale images acquired of the kidneys and bladder and recorded on P ACS. Additional selected color Doppler and spectral images recorded. LIMITATIONS: None. FINDINGS: RIGHT KIDNEY: Normal size, 11.8 cm. Increased echogenicity. No solid or suspicious jesus manuel s. No hydronephrosis. No stones. LEFT KIDNEY: Normal size, 11.9 cm. Increased echogenicity. No solid or suspicious masses. No ston es. BLADDER: No masses. Bilateral ureteral jets are seen. OTHER FINDINGS: Left pleural effusion. IMPRESSION: Increased echogenicity in the kidneys suggesting chronic medical renal disease. Left pl eural effusion. TECHNICAL DOCUMENTATION: JOB ID: [id number] 2010 [employer]- All Rights Reserved Reading location - IP/workstation name: [email or web address]
[2020-09-10] MEDS ORDERED: METOPROLOL TARTRATE 25 MG TABLET PO SCH (22:00)
[2020-09-10] MEDS: INSULIN LISPRO 100 UNIT/ML 3 ML VIAL SUBCUT SCH (22:56)
[2020-09-10] MEDS: FLUTICASONE NASAL SPRAY 50 MCG/SPRY 120 SPRAY/16 GM NASL SCH (22:57)
--- NOTE | 2020-09-10 23:01 | XCELERA REPORT ---
[address] [address] Transthoracic Echocardiogram Report Name: BERNARD OCONNELL Age: 54 yrs Gender: Male : 1965 Patient Status: Inpatient Patient Location: ICU^611^A Study Date: 09/10/2020 07:29 PM Height: 72 in Weight: 240 lb BSA: 2.3 m2 Procedure: A two-dimensional transthoracic echocardiogram with color flow and Doppler was performed. Study Quality: Fair. Reason For Study: hypertensive emergency, elevated BNP History: hypertensive emergency, elevated BNP. Ordering Physician: DEMETRIUS MINER Performed By: Madhuri Shi Interpretation Summary The left ventricle is normal in size. There is moderate concentric left ventricular hypertrophy. LV EF is > than 60% Left ventricular systolic function is normal. Doppler measurements suggest normal left ventricular diastolic function The left ventricular wall motion is normal. There is no thrombus. No ASD ,VSD,or PFO. The right ventricle is normal in size and function. The right atrium is normal. The left atrial size is normal. There is no evidence of mitral valve prolapse. There is no vegetation seen on the mitral valve. There is no mitral valve stenosis. There is a trace amount of mitral regurgitation There is no aortic valvular vegetation. There is no aortic valve stenosis There is no LVOT obstruction. No aortic regurgitation is present. There is no tricuspid stenosis. There is a trace amount of tricuspid regurgitation Tricuspid regurgitation jet envelope not well defined to measure RV systolic pressure accurately. There is no pulmonic valvular stenosis. There is no pulmonic valvular regurgitation. The aortic root is normal size. The inferior vena cava appeared normal and decreased < 50% with respiration (RAP 10-15 mmHg) There is no pericardial effusion. Probable e left pleural effusion. MMode/2D Measurements & Calculations RVDd: 2.7 cm LVIDd: 4.4 cm FS: 33.8 % Ao root diam: 3.5 cm IVSd: 2.1 cm LVIDs: 2.9 cm EDV(Teich): 88.8 ml Ao root area: 9.4 cm2 LVPWd: 1.4 cm ESV(Teich): 33.0 ml LA dimension: 3.8 cm EF(Teich): 62.9 % Doppler Measurements & Calculations MV E max rekha: MV P1/2t max rekha: Ao V2 max: LV V1 max P.6 cm/sec 134.2 cm/sec 138.5 cm/sec 5.1 mmHg MV A max rekha: MV P1/2t: 35.0 msec Ao max PG: LV V1 max: 81.4 cm/sec MVA(P1/2t): 6.3 cm2 7.7 mmHg 112.5 cm/sec MV E/A: 1.4 MV dec slope: 1121 cm/sec2 MV dec time: 0.15 sec PA V2 max: MV P1/2t-pr_phl: 114.0 cm/sec 35.0 msec PA max P.2 mmHg Left Ventricle The left ventricle is normal in size. There is moderate concentric left ventricular hypertrophy. LV EF is > than 60%. Left ventricular systolic function is normal. Doppler measurements suggest normal left ventricular diastolic function. The left ventricular wall motion is normal. There is no thrombus. No ASD ,VSD,or PFO. Right Ventricle The right ventricle is normal in size and function. Atria The right atrium is normal. The left atrial size is normal. Mitral Valve There is no evidence of mitral valve prolapse. There is no vegetation seen on the mitral valve. There is no mitral valve stenosis. There is a trace amount of mitral regurgitation. Aortic Valve There is no aortic valvular vegetation. There is no aortic valve stenosis. There is no LVOT obstruction. No aortic regurgitation is present. Tricuspid Valve There is no tricuspid stenosis. There is a trace amount of tricuspid regurgitation. Tricuspid regurgitation jet envelope not well defined to measure RV systolic pressure accurately. Pulmonic Valve There is no pulmonic valvular stenosis. There is no pulmonic valvular regurgitation. Great Vessels The aortic root is normal size. The inferior vena cava appeared normal and decreased < 50% with respiration (RAP 10-15 mmHg). Effusions There is no pericardial effusion. Probable e left pleural effusion. : DEMETRIUS MINER Lakshmi
[2020-09-11] MEDS: PANTOPRAZOLE SODIUM 40 MG TABLET.DR PO SCH (05:13)
[2020-09-11] MEDS: HEPARIN SOD (PORCINE) 5,000 UNIT/ML 1 ML VIAL SUBCUT SCH ×4 (05:14→22:19)
[2020-09-11 07:03] LABS: ALBUMIN 2.3 g/dL (3.5-5.0); ALKALINE PHOSPHATASE 82 U/L (38-126); ANION GAP 5 (5-19); ASPARTATE AMINO TRANSFERASE 27 U/L (17-59); BILIRUBIN,TOTAL 0.5 mg/dL (0.2-1.3); BLOOD UREA NITROGEN 15 mg/dL (7-20); CALCIUM 8.1 mg/dL (8.4-10.2); CARBON DIOXIDE 29 mmol/L (22-30); CHLORIDE 102 mmol/L (98-107); GLUCOSE 282 mg/dL (75-110); TOTAL PROTEIN 5.3 g/dL (6.3-8.2)
[2020-09-11 07:14] LABS: TROPONIN I 0.037 ng/mL
[2020-09-11 07:17] LABS: POTASSIUM 3.8 mmol/L (3.6-5.0)
[2020-09-11] MEDS: INSULIN LISPRO 100 UNIT/ML 3 ML VIAL SUBCUT SCH ×4 (08:28→22:18)
[2020-09-11] MEDS ORDERED: FUROSEMIDE INJ/PF 40 MG/4 ML SDV IV ONE ×2 (09:00→18:04)
[2020-09-11] MEDS ORDERED: POTASSIUM CHLORIDE 20 MEQ PACKET PO ONE (09:00)
--- NOTE | 2020-09-11 09:24 | RADIOLOGY REPORT (SQ) ---
EXAM DESCRIPTION: CHEST SINGLE VIEW IMAGES COMPLETED DATE/TIME: 09/11/2020 5:59 am REASON FOR STUDY: pulmonary edema COMPARISON: 09/10/2020 EXAM PARAMETERS: NUMBER OF VIEWS: One view. TECHNIQUE: Single frontal radiographic view of the chest acquired. RADIATION DOSE: NA LIMITATIONS: None. FINDINGS: LUNGS AND PLEURA: Significant increase in the pleural effusions particularly on the right. Basilar opacities. No pneumothorax. MEDIASTINUM AND HILAR STRUCTURES: Concern for possible left hilar mass. HEART AND VASCULAR STRUCTURES: Heart normal in size. Normal vasculature. BONES: No acute findings. HARDWARE: None in the chest. OTHER: No other significant finding. IMPRESSION: Significant increase in the bilateral pleural effusions particularly on the right. Possible right hilar mass. Basilar opacities. TECHNICAL DOCUMENTATION: JOB ID: [id number] 2010 [employer]- All Rights Reserved Reading location - IP/workstation name: [email or web address]
[2020-09-11] MEDS: FLUTICASONE NASAL SPRAY 50 MCG/SPRY 120 SPRAY/16 GM NASL SCH ×2 (09:40→22:19)
[2020-09-11] MEDS ORDERED: LISINOPRIL 10 MG TABLET PO SCH (10:00)
[2020-09-11] MEDS ORDERED: CARVEDILOL 6.25 MG TABLET PO SCH (10:00)
--- NOTE | 2020-09-11 12:13 | PDOC CRITICAL CARE PROG REPORT ---
General Date:: 09/11/20 ICU Day:: 2 Hospital Day:: 2 Resuscitation Status: Full Code Events in the past 12 to 24 Hours:: This 54-year-old -[place] male [employer] presented to [facility] emergency department on 09/10/2020 with complaints of dyspnea, exertional dyspnea and orthopnea, along with progressively worsening lower extremity edema and ascites over the past several weeks. He admitted to nonadherence to prescribed antihypertensive therapy and reported not having taken blood pressure medications for several weeks. The patient was on room air; however, chest x-ray demonstrated findings compatible with acute pulmonary edema. Laboratory evaluation revealed elevation in his creatinine, mild troponin leak and elevated BNP. The patient was admitted to the ICU for treatment of hypertensive emergency, presenting with 226/146. 09/11: During day shift today, [id number], steadily downtrending. The patient is on lisinopril 20 mg p.o. daily. He got furosemide 40 mg IV single dose yesterday and again this morning. Started Coreg 6.25 mg p.o. twice daily today. I have discussed with the patient the idea of trying to avoid amlodipine in light of its well-known side effect of worsening lower extremity edema. He has no new complaints. His dyspnea has improved. BNP this morning 3090. Creatinine 1.5. Reason for ICU Addmission:: Accelerated hypertension - Medications: Medications reviewed and adjusted accordingly: Yes Physical Exam Vital Signs: Temp Pulse Resp BP Pulse Ox 98.1 F 98 13 155/105 H 94 09/11/20 05:38 09/11/20 05:38 09/11/20 10:26 09/11/20 10:26 09/11/20 10:26 Intake & Output 09/10/20 09/11/20 09/12/20 06:59 06:59 06:59 Output Total 650 Balance -650 Weight 121.4 kg Weight/Height Weight 121.4 kg Height 1.83 m General appearance: PRESENT: no acute distress, well-developed, well-nourished Head exam: PRESENT: atraumatic, normocephalic Mouth exam: PRESENT: moist, tongue midline Neck exam: ABSENT: carotid bruit, JVD, lymphadenopathy, thyromegaly Respiratory exam: PRESENT: crackles, symmetrical, unlabored. ABSENT: prolonged expiratory phas, rales, rhonchi, wheezes Cardiovascular exam: PRESENT: RRR. ABSENT: diastolic murmur, rubs, systolic murmur Pulses: PRESENT: normal dorsalis pedis pul GI/Abdominal exam: PRESENT: normal bowel sounds, soft. ABSENT: distended, guarding, mass, organolmegaly, rebound, tenderness Extremities exam: PRESENT: pedal edema, +2 edema. ABSENT: clubbing Neurological exam: PRESENT: alert, awake, oriented to person, oriented to place, oriented to time, oriented to situation, reflexes normal, CN II-XII grossly intact, motor sensory deficit - Peripheral neuropathy, most notable in the lower extremities Skin exam: PRESENT: dry, intact, warm, other - Ichthyosis-like changes in the bilateral lower extremities. ABSENT: cyanosis, rash Laboratory/Radiographs Laboratory Results: 09/10/20 11:45 09/11/20 06:34 09/10/20 09/10/20 09/10/20 11:45 11:45 12:52 WBC 7.1 RBC 5.16 Hgb 14.8 Hct 43.8 MCV 85 MCH 28.7 MCHC 33.8 RDW 14.3 H Plt Count 301 Seg Neutrophils % 75.5 Sodium 135.4 L Potassium 4.9 Chloride 99 Carbon Dioxide 30 Anion Gap 6 BUN 15 Creatinine 1.44 H Est GFR ( Amer) > 60 Glucose 336 H Calcium 8.4 Magnesium Total Bilirubin 0.9 AST 52 Alkaline Phosphatase 105 Total Protein 6.7 Albumin 3.0 L TSH Urine Color YELLOW Urine Appearance CLEAR Urine pH 7.0 Ur Specific [place] 1.023 Urine Protein >=500 H Urine Glucose (UA) >=500 H Urine Ketones TRACE H Urine Blood SMALL H Urine Nitrite NEGATIVE Ur Leukocyte Esterase NEGATIVE Urine WBC (Auto) 1 Urine RBC (Auto) 21 09/11/20 09/11/20 06:34 06:34 WBC RBC Hgb Hct MCV MCH MCHC RDW Plt Count Seg Neutrophils % Sodium 136.0 L Potassium 3.8 D Chloride 102 Carbon Dioxide 29 Anion Gap 5 BUN 15 Creatinine 1.49 H Est GFR ( Amer) > 60 Glucose 282 H Calcium 8.1 L Magnesium 1.8 Total Bilirubin 0.5 AST 27 Alkaline Phosphatase 82 Total Protein 5.3 L Albumin 2.3 L TSH 1.30 Urine Color Urine Appearance Urine pH Ur Specific [place] Urine Protein Urine Glucose (UA) Urine Ketones Urine Blood Urine Nitrite Ur Leukocyte Esterase Urine WBC (Auto) Urine RBC (Auto) 09/10/20 09/10/20 09/11/20 11:45 19:00 00:52 Troponin I 0.042 0.036 0.040 NT-Pro-B Natriuret Pep 3990 H 09/11/20 06:34 Troponin I 0.037 NT-Pro-B Natriuret Pep 3090 H Impressions: Renal Ultrasound 09/10/20 00:00 IMPRESSION: Increased echogenicity in the kidneys suggesting chronic medical renal disease. Left pleural effusion. Chest X-Ray 09/11/20 06:00 IMPRESSION: Significant increase in the bilateral pleural effusions parti cularly on the right. Possible right hilar mass. Basilar opacities. All labs, radiographs, diagnostic studies and EKGs were personally reviewed: Yes In addition, reports of radiographic and diagnostic studies were read: Yes Assessment and Plan - Diagnosis (1) Hypertensive emergency Is this a current diagnosis for this admission?: Yes Plan: * Continue lisinopril 20 mg p.o. daily. * Start Coreg 6.25 mg p.o. twice daily. Continue labetalol 20 mg IV every 2 hours as needed for SBP > 165. * Furosemide 40 mg IV today. Daily p.o. diuretic (hydrochlorothiazide, chlorthalidone or furosemide) will likely be beneficial. * Renal ultrasound pending. * 24-hour urine collection in progress. * 2D echo pending. * Again, this patient has been advised to seek diagnostic polysomnography after discharge from the hospital. (2) Elevated troponin Is this a current diagnosis for this admission?: Yes Plan: * Troponins [id number] * 12-lead EKG showed sinus tachycardia with nonspecific T wave changes in the lateral leads. * Stop trending troponins. (3) Elevated brain natriuretic peptide (BNP) level Is this a current diagnosis for this admission?: Yes (4) Acute pulmonary edema Is this a current diagnosis for this admission?: Yes (5) Type 2 diabetes mellitus Qualifiers: Diabetes mellitus intermodal truck driver insulin use: with intermodal truck driver use Diabetes mellitus complication status: with kidney complications Diabetes mellitus complication detail: with nephropathy Qualified Code(s): E11.21 - Type 2 diabetes mellitus with diabetic nephropathy; Z79.4 - terminal computer operator (current) use of insulin Is this a current diagnosis for this admission?: Yes (6) Acute kidney injury Is this a current diagnosis for this admission?: Yes Plan: * Monitor serum creatinine. * Avoid nephrotoxic drugs (the patient takes naproxen for aches and pains at home). * Renal dosing of medications. Plan Summary: OK to transfer to [facility] from pulmonary standpoint. Critical Time Critical Time (minutes): 30 Level of Care: ICU -: 1. The care of a critical patient is a dynamic process. This note is a contact center representative synopsis but static in nature. The timeframe for treatments given in order is not necessarily the actual time these treatments may have been done. 2. This patient requires critical care secondary to ongoing requirements for therapy not offered or safe outside the critical care environment. Transfer to a lower level of care will result in altered life or limb morbidity and mortality. 3. Multidisciplinary rounds completed. 4. ABCDE bundle addressed.
[2020-09-11] MEDS: LABETALOL HCL INJ 20 MG/4 ML DISP.SYRIN IV PRN ×2 (14:12→16:38)
[2020-09-11] MEDS: ISOSORBIDE MONONITRATE 60 MG TAB.ER.24H PO SCH (18:37)
[2020-09-11] MEDS ORDERED: ASPIRIN 81 MG TABLET, CHEWABLE PO SCH (22:00)
[2020-09-11] MEDS ORDERED: ATORVASTATIN CALCIUM 80 MG TABLET PO SCH (22:00)
[2020-09-11] MEDS ORDERED: INSULIN GLARGINE,HUM.REC.ANLOG 1,000 UNIT/10 ML VIAL SUBCUT SCH (22:00)
[2020-09-11] MEDS: NIFEDIPINE 30 MG TAB.ER.24 PO SCH (22:18)
[2020-09-11] MEDS: CARVEDILOL 12.5 MG TABLET PO SCH (22:18)
[2020-09-11] MEDS ORDERED: INSULIN GLARGINE,HUM.REC.ANLOG 1,000 UNIT/10 ML VIAL (PYX) SUBCUT ONE (23:20)
[2020-09-12 05:13] LABS: BLOOD UREA NITROGEN 15 mg/dL (7-20); CALCIUM 7.8 mg/dL (8.4-10.2); CARBON DIOXIDE 30 mmol/L (22-30); CHLORIDE 101 mmol/L (98-107); GLUCOSE 199 mg/dL (75-110); POTASSIUM 3.8 mmol/L (3.6-5.0)
[2020-09-12 05:25] LABS: ANION GAP 1 (5-19)
[2020-09-12] MEDS: PANTOPRAZOLE SODIUM 40 MG TABLET.DR PO SCH (05:45)
[2020-09-12] MEDS: HEPARIN SOD (PORCINE) 5,000 UNIT/ML 1 ML VIAL SUBCUT SCH (05:45)
[2020-09-12] MEDS ORDERED: POTASSIUM CHLORIDE 10 MEQ TABLET.ER PO ONE (07:42)
[2020-09-12] MEDS ORDERED: FUROSEMIDE INJ/PF 40 MG/4 ML SDV IV SCH (08:00)
[2020-09-12] MEDS: INSULIN LISPRO 100 UNIT/ML 3 ML VIAL SUBCUT SCH ×2 (08:12→11:25)
[2020-09-12] MEDS ORDERED: MAGNESIUM OXIDE 400 MG TABLET PO SCH (10:00)
[2020-09-12] MEDS ORDERED: INSULIN GLARGINE,HUM.REC.ANLOG 1,000 UNIT/10 ML VIAL (PYX) SUBCUT ONE (10:39)
[2020-09-12] MEDS: NIFEDIPINE 30 MG TAB.ER.24 PO SCH (10:47)
[2020-09-12] MEDS: CARVEDILOL 12.5 MG TABLET PO SCH (10:47)
[2020-09-12] MEDS: ISOSORBIDE MONONITRATE 60 MG TAB.ER.24H PO SCH (10:47)
[2020-09-12] MEDS: FLUTICASONE NASAL SPRAY 50 MCG/SPRY 120 SPRAY/16 GM NASL SCH (10:48)
[2020-09-12 11:48] VITALS: BP 131/78
--- NOTE | 2020-09-12 13:43 | PDOC DISCHARGE SUMMARY ---
Impression - Admit/DC Date/PCP Admission Date/Primary Care Provider: 09/10/20 17:13 ROBIN HARVEY Discharge Date: 09/12/20 - Discharge Diagnosis (1) Hypertensive emergency Is this a current diagnosis for this admission?: Yes (2) NSTEMI (non-ST elevated myocardial infarction) Is this a current diagnosis for this admission?: Yes (3) Acute pulmonary edema Is this a current diagnosis for this admission?: Yes (4) Type 2 diabetes mellitus Is this a current diagnosis for this admission?: Yes (5) CKD stage 3 due to type 2 diabetes mellitus Is this a current diagnosis for this admission?: Yes (6) Proteinuria Is this a current diagnosis for this admission?: Yes (7) Obesity (BMI 30-39.9) Is this a current diagnosis for this admission?: Yes - Assessment Summary: Mr. Bernard Oconnell is a 54 y/[address] [facility] with PMH of HTN, HLD, insulin dependent DM2 (HbA1c 11.9), obesity (BMI 35), chronic venous stasis of bilateral lower extremities and previously undiagnosed CKD who presented to the ED with SOB, URIOSTEGUI, dizziness and pre-syncope. He reported that he ran out of his home medications 2-3 days prior to admission but his symptoms of SOB, URIOSTEGUI, dizziness and pre-syncope began on the morning of admission. Of note, he also reported 2+ weeks of increasing BLE and scrotal edema. He denied having had any chest pain/p ressure. Upon presentation to the ED, VS were notable for T 97.5, BP 218/121, HR 102, RR 16, O2 saturation 91% on RA. CXR showed bilateral patchy infiltrates and effusions. Labs were notable for troponin 0.04, Cr 1.44, pro-BNP ~4K. EKG showed sinus tachycardia and lateral T-wave flattening. Hypertensive Emergency: He was diagnosed with hypertensive emergency with evidence of end-organ damage (dyspnea, dizziness, NSTEMI) and admitted to the ICU for further management. He was transferred to the floor on the following day. His home HTN/DM2 medications were restarted and titrated up. He was also started on Lasix therapy. He was advised to start checking his BP at least once daily. NSTEMI, type 2: mild demand ischemia due to hypertensive emergency. Continue ASA, statin therapy. CKD stage 3 with proteinuria: He was advised that he has underlying CKD, likely due to combination of uncontrolled HTN, uncontrolled DM2 and longstanding NSAID use. He was advised that he should avoid NSAID usage in the future. Uncontrolled DM2: Home insulin regimen was increased in dosage. He was advised to start checking his glucose at least once daily. Obesity (BMI 35): counseled on diet, exercise and weight loss. chronic venous stasis of BLE: he was referred to wound care clinic. He will follow up with his PCP within 1-2 weeks. - Additional Information Resuscitation Status: Full Code Discharge Diet: Diabetic Discharge Activity: Activity As Tolerated Referrals: SUZETTE FERNÁNDEZ PA [Primary Care Provider] - Follow up as needed Prescriptions: Sitagliptin Phos/Metformin HCl [Janumet Xr 100-1,000 mg Tablet] 1 each PO QPM #30 tab Empagliflozin [Jardiance] 10 mg PO QAM #30 tab Insulin Glargine,Hum.rec.anlog [Lantus Insulin 100 Unit/mL Insulin Pen] 30 unit SUBCUT QHS #3 pen Furosemide [Lasix 40 mg Tablet] 40 mg PO QAM #30 tablet Atorvastatin Calcium [Lipitor 40 mg Tablet] 40 mg PO QHS #30 tab Amlodipine Besylate [Norvasc 5 mg Tablet] 5 mg PO DAILY #30 tab Pantoprazole Sodium [Protonix [address] Tablet] 40 mg PO Q6AM #30 tablet. Telmisartan 80 mg PO DAILY #30 tab Home Medications: Amlodipine Besylate [Norvasc 5 mg Tablet] 5 mg PO DAILY #30 tab 09/12/20 Aspirin [Lo-Dose Aspirin EC] 81 mg PO DAILY #30 tab 09/12/20 Atorvastatin Calcium [Lipitor 40 mg Tablet] 40 mg PO QHS #30 tab 09/12/20 Empagliflozin [Jardiance] 10 mg PO QAM #30 tab 09/12/20 Furosemide [Lasix 40 mg Tablet] 40 mg PO QAM #30 tablet 09/12/20 Insulin Glargine,Hum.rec.anlog [Lantus Insulin 100 Unit/mL Insulin Pen] 30 unit SUBCUT QHS #3 pen 09/12/20 Pantoprazole Sodium [Protonix [address] Tablet] 40 mg PO Q6AM #30 tablet. 09/12/20 Sitagliptin Phos/Metformin HCl [Janumet Xr 100-1,000 mg Tablet] 1 each PO QPM #30 tab 09/12/20 Telmisartan 80 mg PO DAILY #30 tab 09/12/20 History of Present Illiness History of Present Illness: BERNARD OCONNELL is a 54 year old male Physical Exam Vital Signs: Temp Pulse Resp BP Pulse Ox 97.7 F 93 18 131/78 H 91 L 09/12/20 11:44 09/12/20 11:44 09/12/20 11:44 09/12/20 11:44 09/12/20 11:44 Intake & Output 09/11/20 09/12/20 09/13/20 06:59 06:59 06:59 Intake Total 480 240 Output Total 650 9425 Balance -650 -945 240 Weight 121.4 kg 117.9 kg Results Laboratory Results: WBC 7.1 10^3/uL (4.0-10.5) 09/10/20 11:45 RBC 5.16 10^6/uL (4.35-5.55) 09/10/20 11:45 Hgb 14.8 g/dL (13.5-17.0) 09/10/20 11:45 Hct 43.8 % (37.9-51.0) 09/10/20 11:45 MCV 85 fl (80-97) 09/10/20 11:45 MCH 28.7 pg (27.0-33.4) 09/10/20 11:45 MCHC 33.8 g/dL (32.0-36.0) 09/10/20 11:45 RDW 14.3 % (11.5-14.0) H 09/10/20 11:45 Plt Count 301 10^3/uL (150-450) 09/10/20 11:45 Lymph % (Auto) 11.9 % (13-45) L 09/10/20 11:45 [place] % (Auto) 7.6 % (3-13) 09/10/20 11:45 Eos % (Auto) 3.9 % (0-6) 09/10/20 11:45 Baso % (Auto) 1.1 % (0-2) 09/10/20 11:45 Absolute Neuts (auto) 5.3 10^3/uL (1.7-8.2) 09/10/20 11:45 Absolute Lymphs (auto) 0.8 10^3/uL (0.5-4.7) 09/10/20 11:45 Absolute Monos (auto) 0.5 10^3/uL (0.1-1.4) 09/10/20 11:45 Absolute Eos (auto) 0.3 10^3/uL (0.0-0.6) 09/10/20 11:45 Absolute Basos (auto) 0.1 10^3/uL (0.0-0.2) 09/10/20 11:45 Seg Neutrophils % 75.5 % (42-78) 09/10/20 11:45 PT 12.5 SEC (11.4-15.4) 09/10/20 11:45 INR 0.92 09/10/20 11:45 APTT 30.6 SEC (23.5-35.8) 09/10/20 11:45 Sodium 132.4 mmol/L (137-145) L 09/12/20 04:21 Potassium 3.8 mmol/L (3.6-5.0) 09/12/20 04:21 Chloride 101 mmol/L (98-107) 09/12/20 04:21 Carbon Dioxide 30 mmol/L (22-30) 09/12/20 04:21 Anion Gap 1 (5-19) L 09/12/20 04:21 BUN 15 mg/dL (7-20) 09/12/20 04:21 Creatinine 1.44 mg/dL (0.52-1.25) H 09/12/20 04:21 Est GFR ( Amer) > 60 (>60) 09/12/20 04:21 Est GFR (MDRD) Non-Af 51 (>60) L 09/12/20 04:21 Glucose 199 mg/dL (75-110) H 09/12/20 04:21 POC Glucose 239 mg/dL (70-110) H 09/12/20 11:03 Hemoglobin A1c % 11.9 % (4.7-6.0) H 09/11/20 06:34 Calcium 7.8 mg/dL (8.4-10.2) L 09/12/20 04:21 Magnesium 1.8 mg/dL (1.6-2.3) 09/12/20 04:21 Total Bilirubin 0.5 mg/dL (0.2-1.3) 09/11/20 06:34 Direct Bilirubin 0.0 mg/dL (0.0-0.4) 09/11/20 06:34 Neonat Total Bilirubin Not Reportable 09/11/20 06:34 Neonat Direct Bilirubin Not Reportable 09/11/20 06:34 Neonat Indirect Bili Not Reportable 09/11/20 06:34 AST 27 U/L (17-59) 09/11/20 06:34 ALT 21 U/L (<50) 09/11/20 06:34 Alkaline Phosphatase 82 U/L (38-126) 09/11/20 06:34 Troponin I 0.037 ng/mL 09/11/20 06:34 NT-Pro-B Natriuret Pep 3090 pg/mL (<125) H 09/11/20 06:34 Total Protein 5.3 g/dL (6.3-8.2) L 09/11/20 06:34 Albumin 2.3 g/dL (3.5-5.0) L 09/11/20 06:34 TSH 1.30 uIU/mL (0.47-4.68) 09/11/20 06:34 Urine Color YELLOW 09/10/20 12:52 Urine Appearance CLEAR 09/10/20 12:52 Urine pH 7.0 (5.0-9.0) 09/10/20 12:52 Ur Specific [place] 1.023 09/10/20 12:52 Urine Protein >=500 mg/dL (NEGATIVE) H 09/10/20 12:52 Urine Glucose (UA) >=500 mg/dL (NEGATIVE) H 09/10/20 12:52 Urine Ketones TRACE mg/dL (NEGATIVE) H 09/10/20 12:52 Urine Blood SMALL (NEGATIVE) H 09/10/20 12:52 Urine Nitrite NEGATIVE (NEGATIVE) 09/10/20 12:52 Urine Bilirubin NEGATIVE (NEGATIVE) 09/10/20 12:52 Urine Urobilinogen NEGATIVE mg/dL (<2.0) 09/10/20 12:52 Ur Leukocyte Esterase NEGATIVE (NEGATIVE) 09/10/20 12:52 Urine WBC (Auto) 1 /HPF 09/10/20 12:52 Urine RBC (Auto) 21 /HPF 09/10/20 12:52 U Hyaline Cast (Auto) 2 /LPF 09/10/20 12:52 Urine Mucus (Auto) RARE /LPF 09/10/20 12:52 Urine Ascorbic Acid NEGATIVE (NEGATIVE) 09/10/20 12:52 Urine Opiates Screen NEGATIVE 09/10/20 12:52 Urine Methadone Screen NEGATIVE 09/10/20 12:52 Ur Barbiturates Screen NEGATIVE 09/10/20 12:52 Ur Phencyclidine Scrn NEGATIVE 09/10/20 12:52 Ur Amphetamines Screen NEGATIVE 09/10/20 12:52 U Benzodiazepines Scrn NEGATIVE 09/10/20 12:52 Urine Cocaine Screen NEGATIVE 09/10/20 12:52 U Marijuana (THC) Screen NEGATIVE 09/10/20 12:52 09/10/20 09/10/20 09/11/20 11:45 19:00 00:52 Troponin I 0.042 0.036 0.040 NT-Pro-B Natriuret Pep 3990 H 09/11/20 06:34 Troponin I 0.037 NT-Pro-B Natriuret Pep 3090 H Impressions: Renal Ultrasound 09/10/20 00:00 IMPRESSION: Increased echogenicity in the kidneys suggesting chronic medical renal disease. Left pleural effusion. Chest X-Ray 09/10/20 11:42 IMPRESSION: Patchy bibasilar infiltrates left greater than right. Most likely pneumonia. Less likely asymmetric edema. Chest X-Ray 09/11/20 06:00 IMPRESSION: Significant increase in the bilateral pleural effusions particularly on the right. Possible right hilar mass. Basilar opacities. Stroke Is this a Stroke Patient?: No Acute Heart Failure Is this a Heart Failure Patient?: No
[2020-09-12] MEDS ORDERED: INSULIN GLARGINE,HUM.REC.ANLOG 1,000 UNIT/10 ML VIAL SUBCUT SCH (22:00)
== END 2020-09-12 12:40 | disposition home or self-care (01) | DRG 280 ==
LOC: ER 10:59 → EH 17:13 → ICU 18:10 → 3W 09-11 15:46
PROVIDERS: ADMIT Internal Medicine Critical Care Medicine; ATTEND Hospitalist
DX: I16.1 Hypertensive emergency (principal); J81.0 Acute pulmonary edema; I21.4 Non-ST elevation (NSTEMI) myocardial infarction; N17.9 Acute kidney failure, unspecified; E11.22 Type 2 diabetes mellitus with diabetic chronic kidney disease; E11.51 Type 2 diabetes mellitus with diabetic peripheral angiopathy without gangrene; I12.9 Hypertensive chronic kidney disease with stage 1 through stage 4 chronic kidney disease, or unspecified chronic kidney disease; N18.30 Chronic kidney disease, stage 3 unspecified; E66.9 Obesity, unspecified; E78.5 Hyperlipidemia, unspecified; M47.892 Other spondylosis, cervical region; M17.0 Bilateral primary osteoarthritis of knee; F17.290 Nicotine dependence, other tobacco product, uncomplicated; H93.19 Tinnitus, unspecified ear; K59.00 Constipation, unspecified; R80.9 Proteinuria, unspecified; R26.9 Unspecified abnormalities of gait and mobility; Z68.39 Body mass index [BMI] 39.0-39.9, adult; Z79.82 Long term (current) use of aspirin; Z79.4 Long term (current) use of insulin; Z79.899 Other long term (current) drug therapy
CPT/HCPCS: 36415; 71045; 76770; 80048; 80053; 80307; 81001; 82088; 82962; 83036; 83735; 83880; 84244; 84443; 84484; 85025; 85610; 85730; 93005; 93010; 93306; 94660; 96374; 96375; 99285; 99291; J1644; J1815; J1940; J3490